=== PATIENT | male | born 1970 | race African-American/Black ===

== ENCOUNTER 2022-05-14 11:08 | Emergency (ER) | payer OTHER ==
[2022-05-14 11:18] VITALS: BP 119/79; PULSE 73; TEMP 97.9; BMI 27.4
[2022-05-14] MEDS ORDERED: LIDOCAINE 5% TOPICAL PATCH TP ONE (12:03)
[2022-05-14] MEDS ORDERED: KETOROLAC TROMETHAMINE 30 MG/1 ML VIAL IM ONE (12:03)
[2022-05-14] MEDS ORDERED: ACETAMINOPHEN 500 MG TABLET (FP) PO ONE (12:03)
[2022-05-14] MEDS ORDERED: CYCLOBENZAPRINE HCL 10 MG TABLET (FP) PO ONE (12:06)
[2022-05-14] MEDS ORDERED: LIDOCAINE 5% TOPICAL PATCH ONE (12:06)
[2022-05-14] MEDS ORDERED: KETOROLAC TROMETHAMINE 30 MG/1 ML VIAL ONE (12:07)
[2022-05-14] MEDS ORDERED: CYCLOBENZAPRINE HCL 10 MG TABLET (FP) ONE (12:07)
[2022-05-14] MEDS ORDERED: ACETAMINOPHEN 500 MG TABLET (FP) ONE (12:07)
[2022-05-14] MEDS: CYCLOBENZAPRINE HCL 10 MG TABLET (FP) PO ONE ×2 (12:13→12:21)
[2022-05-14] MEDS ORDERED: LIDOCAINE PATCH REMOVAL MC SCH (22:00)
== END 2022-05-14 14:24 | disposition home or self-care (01) ==
LOC: JERFT 11:08
PROC: 3E0233Z Introduction of Anti-inflammatory into Muscle, Percutaneous Approach (ICD-10-PCS; principal; 2022-05-14)
DX: M54.2 Cervicalgia (principal); M54.50 Low back pain, unspecified; V89.2XXA Person injured in unspecified motor-vehicle accident, traffic, initial encounter; Y92.9 Unspecified place or not applicable
CPT/HCPCS: 70450-TC; 72100-TC-FY; 72125-TC; 99285-25